=== PATIENT | male | born 1980 | race Caucasian/White ===

== ENCOUNTER 2021-08-20 14:59 | Emergency (ER) | payer OTHER ==
[2021-08-20] MEDS ORDERED: NAPROSYN500 MG PO (17:26)
[2021-08-20] MEDS ORDERED: CYCLOBENZAPRINE5 MG PO (17:26)
== END 2021-08-20 17:52 | disposition home or self-care (01) ==
LOC: ER1 14:59
DX: S39.012A Strain of muscle, fascia and tendon of lower back, initial encounter (principal); M54.41 Lumbago with sciatica, right side; M51.16 Intervertebral disc disorders with radiculopathy, lumbar region; F17.210 Nicotine dependence, cigarettes, uncomplicated; Z88.8 Allergy status to other drugs, medicaments and biological substances; X58.XXXA Exposure to other specified factors, initial encounter
CPT/HCPCS: 72131; 99283